=== PATIENT | female | born 1995 | race Caucasian/White ===

== ENCOUNTER 2021-03-04 11:49 | Inpatient (IN) | payer OTHER, MEDICAID ==
[~2021-03-04] VITALS: Ht 165.1 cm; Wt 147.0 kg
--- NOTE | ~2021-03-04 | EKG ---
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
[2021-03-04 12:04] VITALS: BP 117/70
[2021-03-04 12:23] LABS: ABSOLUTE LYMPHOCYTES 0.9 thou/uL (0.8-5.3); ABSOLUTE MONOCYTES 0.4 thou/uL (0.0-1.2); ABSOLUTE NEUTROPHILS 4.2 thou/uL (1.6-8.1); BASOPHILS 0.6 %; EOSINOPHILS 0.1 %; HEMATOCRIT 38.3 % (37.0-47.0); LYMPHOCYTES 15.7 %; MCH 27.3 pg (26.0-34.0); MCHC 33.9 g/dL (28.0-37.0); MCV 80.4 fL (80.0-100.0); MONOCYTES 7.6 %; MPV 8.4 fl. (7.2-11.1); NUCLEATED RBCS 0 /100WBC; PLATELET COUNT* 255 thou/uL (150-400); RBC 4.76 mil/uL (4.20-5.00); RDW-CV 16.4 % (10.5-14.5); WBC 5.5 thou/uL (4.0-11.0)
[2021-03-04 12:31] LABS: CALCIUM 8.2 mg/dL (8.5-10.1); CREATININE 1.1 mg/dL (0.6-1.3); POTASSIUM 3.9 mmol/L (3.5-5.1)
[2021-03-04 12:35] LABS: ALBUMIN 3.4 g/dL (3.4-5.0); TOTAL BILIRUBIN 0.6 mg/dL (<0.1-1.0); TOTAL PROTEIN 7.7 g/dL (6.4-8.2)
[2021-03-04 14:16] LABS: BACTERIA-REFLEX 1-9 Few /HPF (None Seen); CASTS None Seen /LPF (None Seen); CRYSTALS None Seen /LPF (None Seen); MUCUS None Seen strn/LPF (None Seen); SQUAMOUS 0-3 Few /LPF (0-3); URINE BILIRUBIN NEGATIVE (Negative); URINE BLOOD 3+ (Negative); URINE CLARITY CLEAR; URINE COLOR YELLOW; URINE GLUCOSE-RANDOM NEGATIVE (Negative); URINE KETONES TRACE (Negative); URINE LEUKOCYTES-REFLEX NEGATIVE (Negative); URINE NITRITE-REFLEX NEGATIVE (Negative); URINE PROTEIN 1+ (Negative); URINE RBC >20 Many /HPF (0-2); URINE WBC-REFLEX 0-5 Rare /HPF (0-5)
--- NOTE | 2021-03-04 16:09 | NUR ---
Infection Prevention: Per [facility] patient has a positive Covid 19 PCR test on 02/26/21.
[2021-03-04 18:05] VITALS: BP 110/61
[2021-03-04 20:00] VITALS: BP 129/65
[2021-03-04 23:47] VITALS: BP 114/62
[2021-03-05 04:58] VITALS: BP 101/57
[2021-03-05 06:24] LABS: HEMATOCRIT 37.1 % (37.0-47.0); HEMOGLOBIN 12.3 gm/dL (12.0-15.0); MCH 26.8 pg (26.0-34.0); MCHC 33.2 g/dL (28.0-37.0); MCV 80.6 fL (80.0-100.0); MPV 8.7 fl. (7.2-11.1); RBC 4.6 mil/uL (4.20-5.00); RDW-CV 16.3 % (10.5-14.5); WBC 3.3 thou/uL (4.0-11.0)
[2021-03-05 06:27] LABS: CALCIUM 8.3 mg/dL (8.5-10.1); CREATININE 0.9 mg/dL (0.6-1.3); POTASSIUM 4.2 mmol/L (3.5-5.1)
[2021-03-05 09:00] VITALS: BP 90/61
[2021-03-05 12:04] VITALS: BP 112/64
--- NOTE | 2021-03-05 13:36 | NUR ---
CM spoke with Pt via phone, covid positive on precautions. Pt is A&O. Resides at home. Independent. No DME. No hx of HH or SNF. [place] [facility] [place] Start Remdisivir. Goal is home at vt, no needs anticipate. Pt will be inpt for several more days.
[2021-03-05 18:13] VITALS: BP 141/78
[2021-03-05 20:00] VITALS: BP 123/77
[2021-03-06 00:09] VITALS: BP 120/75
[2021-03-06 03:50] VITALS: BP 112/69
--- NOTE | 2021-03-06 03:50 | NUR ---
PT SLEPT MOST ALL SHIFT. SAID SHE HAD A HEADACHE BUT FROM USING HER PHONE AND THAT SHE WOULD TRY AND HOLD IT DIFFERENTLY. SHE DID RECEIVE PERCOCET FOR PAIN IN ABDOMEN. SHE RECEIVED ALL MEDS AND FLUIDS SCHEDULED. UP STANDBY ASSIST, ROOM AIR. ALERT AND ORIENTED.
--- NOTE | 2021-03-06 05:33 | NUR ---
PT REPORTS HEAVINESS FEELING ON CHEST AND SHE SAYS SHE CANT BREATHE WELL. REPOSITIONED, O2 IS 95% ON 2.5L - NC. EKG DONE AT 0530 SHOWING NSR ALONG WITH MONITORED RHYTHM STEADILY IN 60'S NSR. SHE REPORTS HER PAIN 9/10 AND IS IN ABDOMEN AND WAS GIVEN PERCOCET FOR THIS. SHE APPEARS ANXIOUS AND TEARFUL AND WAS REASSURED WHILE IN ROOM.
[2021-03-06 09:00] VITALS: BP 139/70
[2021-03-06 10:00] LABS: ABSOLUTE LYMPHOCYTES 1.8 thou/uL (0.8-5.3); ABSOLUTE MONOCYTES 0.5 thou/uL (0.0-1.2); ABSOLUTE NEUTROPHILS 6.6 thou/uL (1.6-8.1); BASOPHILS 0.2 %; HEMATOCRIT 37.6 % (37.0-47.0); HEMOGLOBIN 12.3 gm/dL (12.0-15.0); LYMPHOCYTES 19.9 %; MCH 26.5 pg (26.0-34.0); MCHC 32.8 g/dL (28.0-37.0); MCV 80.8 fL (80.0-100.0); MONOCYTES 6.1 %; MPV 8.4 fl. (7.2-11.1); NUCLEATED RBCS 0 /100WBC; PLATELET COUNT* 288 thou/uL (150-400); POLYS 73.8 %; RBC 4.66 mil/uL (4.20-5.00); RDW-CV 16.6 % (10.5-14.5)
[2021-03-06 10:13] LABS: CALCIUM 8.5 mg/dL (8.5-10.1); CREATININE 0.8 mg/dL (0.6-1.3); POTASSIUM 3.9 mmol/L (3.5-5.1)
[2021-03-06 12:29] VITALS: BP 108/66
--- NOTE | 2021-03-06 13:50 | NUR ---
Continue ivabx and pain control. Pt reports continuing to bleed, Dr discussed transferring to [facility] [place], Pt to think about. On 2.5L o2. Covid positive.
--- NOTE | 2021-03-06 14:22 | EKG ---
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
[2021-03-06 16:20] VITALS: BP 123/60
[2021-03-06 23:54] VITALS: BP 134/66
[2021-03-07 04:11] VITALS: BP 115/72
[2021-03-07 04:53] LABS: ABSOLUTE LYMPHOCYTES 1.7 thou/uL (0.8-5.3); ABSOLUTE MONOCYTES 0.5 thou/uL (0.0-1.2); ABSOLUTE NEUTROPHILS 4.7 thou/uL (1.6-8.1); BASOPHILS 0.2 %; HEMATOCRIT 36.3 % (37.0-47.0); HEMOGLOBIN 12.1 gm/dL (12.0-15.0); LYMPHOCYTES 24.3 %; MCH 27.2 pg (26.0-34.0); MCHC 33.4 g/dL (28.0-37.0); MCV 81.4 fL (80.0-100.0); MONOCYTES 7.7 %; MPV 8.6 fl. (7.2-11.1); NUCLEATED RBCS 0 /100WBC; PLATELET COUNT* 269 thou/uL (150-400); POLYS 67.8 %; RBC 4.46 mil/uL (4.20-5.00); RDW-CV 16.4 % (10.5-14.5)
[2021-03-07 05:27] LABS: CALCIUM 8.6 mg/dL (8.5-10.1); CREATININE 0.8 mg/dL (0.6-1.3); POTASSIUM 3.9 mmol/L (3.5-5.1)
--- NOTE | 2021-03-07 06:32 | NUR ---
PATIENT SLEPT MOST OF THE NIGHT. PATIENT ACCIDENTALLY PULLED OUT IV THIS MORNING. NEW IV WAS STARTED. IV FLUIDS CONTINUE TO INFUSE ORDERED. PATIENT WAS GIVEN SCHEDULED TYLENOL FOR PAIN. WILL CONTINUE TO MONITOR.
--- NOTE | 2021-03-07 12:25 | NUR ---
Med/surg status. Continues to be hypoxic. O2 needs up to 3L. Anticipate dc in a few days. CM to follow for o2 needs at dc.
[2021-03-07 12:33] VITALS: BP 122/67
[2021-03-07 16:00] VITALS: BP 129/68
--- NOTE | 2021-03-07 16:31 | NUR ---
RECEIVED REPORT AROUND 07. ASSUMED CARE. VS AND ASSESSMENT CHARTED. IV INTACT LEFT FOREARM. HEART MONITOR ATTACHED AT THIS AM AT . MED/SURG STATUS NOW. HEART MONITOR TAKEN OFF. PT STATED "IT'S JUST HARD WHEN I BREATHE" NO PAIN. UP ADLIB TO STAND BY ASSIST. HAD BOWEL MOVEMENTS TODAY. MEDS GIVEN PER DEC. HOURLY ROUNDING PERFORMED. ISOLATION INTACT. 2L NC. CALL LIGHT WITH IN REACH. WILL CONTINUE TO MONITOR.
[2021-03-07 19:35] VITALS: BP 117/70
[2021-03-08] VITALS: BP 111/66
--- NOTE | 2021-03-08 00:34 | NUR ---
ASSUMED CARE OF PT AT 1900. PT IS ALERT AND ORIENTED. VSS. PERRLA. NO COMPLAINTS OF PAIN. PT IS ON 2 LITERS O2. PT IS SLEEPING QUIETLY IN BED. RESPIRATIONS ARE EVEN AND NONLABORED. WILL CONTINUE TO MONITOR PT.
[2021-03-08 04:52] LABS: ABSOLUTE LYMPHOCYTES 1.8 thou/uL (0.8-5.3); ABSOLUTE MONOCYTES 0.6 thou/uL (0.0-1.2); ABSOLUTE NEUTROPHILS 5.1 thou/uL (1.6-8.1); BASOPHILS 0.3 %; HEMATOCRIT 37.6 % (37.0-47.0); HEMOGLOBIN 12.3 gm/dL (12.0-15.0); LYMPHOCYTES 23.7 %; MCH 26.6 pg (26.0-34.0); MCHC 32.8 g/dL (28.0-37.0); MCV 81.2 fL (80.0-100.0); MONOCYTES 7.7 %; MPV 8.8 fl. (7.2-11.1); NUCLEATED RBCS 0 /100WBC; PLATELET COUNT* 326 thou/uL (150-400); POLYS 68.3 %; RBC 4.64 mil/uL (4.20-5.00); RDW-CV 16.5 % (10.5-14.5); WBC 7.4 thou/uL (4.0-11.0)
[2021-03-08 05:12] LABS: CALCIUM 8.4 mg/dL (8.5-10.1); CREATININE 0.7 mg/dL (0.6-1.3); POTASSIUM 3.8 mmol/L (3.5-5.1); TOTAL BILIRUBIN 0.4 mg/dL (<0.1-1.0); TOTAL PROTEIN 7.2 g/dL (6.4-8.2)
--- NOTE | 2021-03-08 07:20 | NUR ---
CHANGE OF SHIFT BEDSIDE REPORT GIVEN PATIENT SEEN AT BEDSIDE, IN BED SITTING UP ASSUMED PATIENT CARE
[2021-03-08 08:00] VITALS: BP 114/75
--- NOTE | 2021-03-08 12:37 | NUR ---
Finish remdisivir, then home. Ex ox will need to be completed if Pt continues to require o2, prior auth will need to be completed through Pt's Medicaid.
[2021-03-08 18:59] VITALS: BP 134/50
[2021-03-09 00:15] VITALS: BP 103/55
[2021-03-09 05:05] LABS: ALBUMIN 3.2 g/dL (3.4-5.0); CALCIUM 8.7 mg/dL (8.5-10.1); CREATININE 0.7 mg/dL (0.6-1.3); MAGNESIUM 2.4 mg/dL (1.8-2.4); POTASSIUM 4.4 mmol/L (3.5-5.1); TOTAL BILIRUBIN 0.3 mg/dL (<0.1-1.0); TOTAL PROTEIN 7.6 g/dL (6.4-8.2)
[2021-03-09 08:43] VITALS: BP 131/82
[2021-03-09 14:31] VITALS: BP 98/55
[2021-03-09 18:14] VITALS: BP 110/64
[2021-03-10 00:06] VITALS: BP 132/64
[2021-03-10 04:27] LABS: ABSOLUTE LYMPHOCYTES 2.1 thou/uL (0.8-5.3); ABSOLUTE MONOCYTES 0.9 thou/uL (0.0-1.2); BASOPHILS 0.3 %; HEMATOCRIT 40.4 % (37.0-47.0); HEMOGLOBIN 13.3 gm/dL (12.0-15.0); LYMPHOCYTES 19.3 %; MCH 26.9 pg (26.0-34.0); MCHC 32.9 g/dL (28.0-37.0); MCV 81.7 fL (80.0-100.0); MPV 8.6 fl. (7.2-11.1); NUCLEATED RBCS 0 /100WBC; POLYS 72.4 %; RBC 4.94 mil/uL (4.20-5.00); RDW-CV 16.3 % (10.5-14.5)
[2021-03-10 04:32] LABS: CALCIUM 8.7 mg/dL (8.5-10.1); CREATININE 0.7 mg/dL (0.6-1.3); POTASSIUM 4.4 mmol/L (3.5-5.1)
[2021-03-10 04:34] LABS: PLATELET COUNT* 454 thou/uL (150-400)
[2021-03-10 08:42] VITALS: BP 108/56
[2021-03-10] MEDS ORDERED: PROTONIX40 M2 PO (09:47)
[2021-03-10] MEDS ORDERED: DEXAMETHASONE1 MG PO (09:47)
[2021-03-10] MEDS ORDERED: DOXYCYCLINE 10100 MG PO (09:47)
[2021-03-10] MEDS ORDERED: PROAIR HFA8.5 GM INH (09:47)
[2021-03-10 12:02] VITALS: BP 108/56
[2021-03-10 12:08] VITALS: BP 108/56
--- NOTE | 2021-03-10 12:38 | NUR ---
RECEVIED REPORT. ASSUMED CARE OF PT AROUND 0730. AM ASSESSMENT AND VITALS COMPLETED CHARTED. MEDS PER EMAR. M/S STATUS. PT MUCH IMPROVED THIS AM - ABLE TO BE OFF O2. REST AND EXERCISE SHOWS NO NEED FOR O2 WITH ACTIVTY.DC ORDERS RECEIVED. DISCHARGE COMPLETED DOCUMMENTED. PT AWARE TO INSURANCE BILLING CLERK NEW MEDS FROM PHARMACY AND TO FOLLOW UP WITH PCP IN 2 WEEKS. RETURN TO WORK RELEASE GIVEN. IV REMOVED. PT LEFT UNIT IN WC WITH NURSING STAFF AND ALL BELONGINGS. PT LEFT HOSPITAL IN CAR WITH FRIEND.
--- NOTE | 2021-03-12 11:31 | CON ---
[address] [address] CONSULTATION Name: JENNIFFER JACOBO Room: [address] IN M.R.#: [id number] Admission: 03/04/21 Attend Phys: Galindo Aquino Discharge: 03/10/21 Date of : [birth year] Report #: [id number] THIS REPORT FOR: cc: Physician not on staff Physician not on staff Jimbo Mccarty MD ~ DOC #: [id number] Jimbo Mccarty MD DATE OF CONSULTATION: 03/07/2021 Consult has been requested by Dr. Melvin Huggins. INDICATION FOR CONSULTATION: COVID-19. HISTORY OF PRESENT ILLNESS: A 25-year-old female, lifetime nonsmoker with history of morbid obesity, body mass index 54. I suspect that she has significant obstructive sleep apnea. The patient has not been previously diagnosed. At this time, is admitted with COVID-19. The patient had recent gynecological surgery at [place] about a week ago. The patient is reported to have tested positive for COVID-19 at that time. Subsequent to her discharge from [place], the patient is reported to have had increasing shortness of breath. She also says that she has had a cough and still has yellow sputum production, also says that she was constipated and was having nausea and also had abdominal discomfort and hematuria. The patient eventually was admitted here. Since admission, the patient has been fluid resuscitated. She is also being treated with remdesivir and dexamethasone and has been on ceftriaxone as well. Overall, she reports improvement in shortness of breath since she was last here. The patient is still requiring around 3 liters of oxygen to maintain O2 saturation in the low 90s. There may be some increase in oxygen needs since she was admitted, initially reported to be on 2 liters nasal cannula, but overall she says that she is feeling better. She does have swelling of lower extremities, no calf pain. REVIEW OF SYSTEMS: The patient's review of systems is negative for 12-point except as mentioned above. PAST MEDICAL HISTORY: Morbid obesity, body mass index is 54, recent gynecological surgery, I do not have details available at this time. SOCIAL HISTORY: There is no known history of smoking, ethanol abuse or drug abuse. CURRENT MEDICATIONS: List in [employer] [place] [address] CONSULTATION Name: JENNIFFER JACOBO Room: [address] IN [facility].#: [id number] Admission: 03/04/21 Attend Phys: Galindo Aquino Discharge: 03/10/21 Date of : [birth year] Report #: [id number] HOME MEDICATIONS: List in [employer] reviewed. ALLERGIES: No known drug allergies. FAMILY HISTORY: No pertinent family history. PHYSICAL EXAMINATION: GENERAL: She is alert, awake and oriented, does not appear to be in any distress at this time. She does have morbid obesity. VITAL SIGNS: Has a pulse of 83 and a blood pressure of 129/68. She is saturating 92% on 3 liters nasal cannula. Respiratory rate is mildly elevated to 21. Temperature is 37.1. HEENT: Head is normocephalic and atraumatic. She appears to have a narrow airway. NECK: Does not show raised JVP, asymmetry, mass or lymph nodes. CHEST: Symmetrical expansion on inspection and palpation. On auscultation, breath sounds are bilaterally equal, but decreased. No added sounds. HEART: Regular. There is no murmur. ABDOMEN: Soft and nontender. EXTREMITIES: Lower extremities, 1+ edema, no calf tenderness. SKIN: Dry and intact. NEUROLOGIC: Moves all extremities bilaterally equally and spontaneously with no focal deficits identified. LABORATORY DATA: The patient's lab work is in [facility] and this is reviewed. Elevated D-dimer initially as noted. Positive COVID-19 PCR with a negative antigen noted. ASSESSMENT/PLAN: 1. Acute hypoxemic respiratory failure secondary to COVID-19. Continue to titrate oxygen. In case the patient's respiratory status worsens, I would have a very low threshold of starting a BiPAP while asleep and p.r.n. as she likely has significant underlying obstructive sleep apnea. She is on albuterol. We will continue with the same. 2. COVID-19. Continue dexamethasone at 6 mg daily. Also, we will continue with remdesivir for 5 days as already planned. Considering that the patient states overall she is feeling better, I decided for now to hold off on convalescent plasma and Actemra. 3. Pulmonary infiltrates/possibility of urinary tract infection. Based on her urinalysis, I feel that it will be unlikely that she has a urinary tract infection; however, she does have yellow sputum production. Therefore, I feel it is reasonable to continue ceftriaxone to cover for secondary bacterial infections. I will go ahead and request a sputum culture as well. 4. Fluid overload. I feel that she is fluid overloaded at this time, recommend [address] [place] [address] CONSULTATION Name: JENNIFFER JACOBO Room: [address] IN M.R.#: [id number] Admission: 03/04/21 Attend Phys: Galindo Aquino Discharge: 03/10/21 Date of : 89 Report #: [id number] discontinuing IV fluids. I would go ahead and give her Lasix, but I ordered it for tomorrow morning unless her respiratory status worsens. I do not want to keep her awake, if we give Lasix later in the day. She had hematuria earlier; however, I understand that this has subsided, we will watch this closely. 5. Edema and elevated D-dimer. There is no pulmonary emboli on the CTA chest; however, it was a somewhat limited study. I would recommend obtaining venous Dopplers as well. She is on Lovenox in the prophylactic dose. 6. Morbid obesity in the long run strongly recommend weight loss as well as an outpatient sleep study. Thank you for this consultation. Jimbo Mccarty MD AP/EMILY <ELECTRONICALLY SIGNED> By: Jimbo Mccarty MD 03/12/21 1131 [id number] Mccarty MD /nt
[2021-03-13] MEDS ORDERED: PERCOCET 5-3251 EACH PO (00:07)
== END 2021-03-10 12:41 | disposition home or self-care (01) | DRG 177 ==
LOC: M.ERS 11:49 → M.2W 15:31 → M.TBA-ER 15:31 → M.2W 18:19
PROVIDERS: Emergency Medicine Emergency Medical Services; Family Medicine; Internal Medicine; Internal Medicine Critical Care Medicine; ADMIT Internal Medicine; ATTEND Internal Medicine
PROC: XW033E5 Introduction of Remdesivir Anti-infective into Peripheral Vein, Percutaneous Approach, New Technology Group 5 (ICD-10-PCS; principal; 2021-03-05)
DX: U07.1 COVID-19 (principal); J96.01 Acute respiratory failure with hypoxia; J12.82 Pneumonia due to coronavirus disease 2019; Z68.43 Body mass index [BMI] 50.0-59.9, adult; E87.1 Hypo-osmolality and hyponatremia; E66.2 Morbid (severe) obesity with alveolar hypoventilation; E83.51 Hypocalcemia; R16.1 Splenomegaly, not elsewhere classified